=== PATIENT | female | born 1975 | race African-American/Black ===

== ENCOUNTER 2021-04-04 13:27 | Emergency (ER) | payer BC ==
[~2021-04-04] VITALS: Ht 175.3 cm; Wt 117.2 kg
[~2021-04-04 13:27] MED LIST: AMLODIPINE BESYL5 MG PO; IRON325 M1 PO; LISINOPRIL10 MG PO; METFORMIN HCL500 MG PO
[2021-04-04] MEDS ORDERED: MACROBID 100 M100 MG PO (14:21)
[2021-04-04] MEDS ORDERED: LISINOPRIL-HCT1 EAC2 PO (14:44)
[2021-04-04] MEDS ORDERED: NITROFURANTOIN100 MG PO (14:45)
== END 2021-04-04 14:56 | disposition home or self-care (01) ==
LOC: FSED 13:39
DX: R10.30 Lower abdominal pain, unspecified (principal); N39.0 Urinary tract infection, site not specified; I10 Essential (primary) hypertension; D64.9 Anemia, unspecified
CPT/HCPCS: 81003; 81025; 99283